=== PATIENT | female | born 1975 | race Caucasian/White ===

== ENCOUNTER 2018-10-29 09:25 | Emergency (ER) | payer OTHER ==
[~2018-10-29] VITALS: Ht 172.7 cm; Wt 108.2 kg
--- NOTE | 2018-10-29 09:46 | NUR ---
[id number]
--- NOTE | 2018-10-29 10:00 | NUR ---
PT IN ROOM. PT AMBULATED TO ROOM WITH A STEADY GAIT.
[2018-10-29] MEDS ORDERED: CLINDAMYCIN 300 MG CAPSULE ONE (10:23)
[2018-10-29] MEDS ORDERED: KETOROLAC 30 MG/1 ML ONE (10:23)
[2018-10-29] MEDS ORDERED: CLINDAMYCIN 300 MG CAPSULE PO ONE (10:30)
[2018-10-29] MEDS ORDERED: KETOROLAC 30 MG/1 ML IM ONE (10:30)
[2018-10-29 10:31] VITALS: BP 146/96
[2018-10-29] MEDS ORDERED: BACITRACIN ZINC OINT 500U/GM, 0.9 GM ONE (11:00)
--- NOTE | 2018-10-29 11:03 | NUR ---
Patient given discharge instructions and they have confirmed that they understand the instructions. Patient ambulatory with steady gait.
== END 2018-10-29 11:05 | disposition home or self-care (01) ==
LOC: ED 09:50
DX: L03.211 Cellulitis of face (principal)
CPT/HCPCS: 96372; 99283; J1885

== ENCOUNTER 2019-05-25 23:30 | Emergency (ER) | payer OTHER ==
[~2019-05-25] VITALS: Ht 172.7 cm; Wt 114.2 kg
[2019-05-25] MEDS ORDERED: TRAZ-137 PO (23:53)
[2019-05-25] MEDS ORDERED: PANT40TA3 PO (23:53)
--- NOTE | 2019-05-25 23:54 | NUR ---
PT IN HOSPITAL GOWN, RESTING IN [facility]. PT ON CARDIAC AND VITALS MONITORS. WILL CONTINUE TO MONITOR. CALL LIGHT WITHIN REACH. BILAT BEDRAILS UP.
[2019-05-26 00:34] LABS: BASOPHILS # (AUTO) 0.04 x10^3/uL (0-0.1); BASOPHILS % (AUTO) 1 % (0-1); EOSINOPHILS # (AUTO) 0.15 x10^3/uL (0-0.4); EOSINOPHILS % (AUTO) 3 % (1-7); LYMPHOCYTES # (AUTO) 2.04 x10^3/uL (1-3.4); LYMPHOCYTES % (AUTO) 38 % (22-44); MD NO; MEAN CORPUSCULAR HEMOGLOBIN 32.5 pg (27.0-34.8); MEAN CORPUSCULAR HGB CONC 33.7 g/dL (32.4-35.8); MEAN CORPUSCULAR VOLUME 96.3 fL (80-100); MEAN PLATELET VOLUME 8.6 fL (7.4-10.4); MONOCYTES # (AUTO) 0.47 x10^3/uL (0.2-0.8); MONOCYTES % (AUTO) 9 % (2-9); NEUTROPHILS # (AUTO) 2.64 x10^3/uL (1.8-6.8); NEUTROPHILS % (AUTO) 49 % (42-75); PLATELET COUNT 262 x10^3/uL (130-400); RED BLOOD COUNT 4.23 x10^6/uL (3.82-5.3); RED CELL DISTRIBUTION WIDTH 13.1 % (9.6-15.2)
[2019-05-26 00:43] LABS: ALANINE AMINOTRANSFERASE 24 U/L (12-78); ALBUMIN 3.7 g/dL (3.4-5.0); ANION GAP 7 mmol/L (5-15); CALCIUM 8.8 mg/dL (8.5-10.1); CHLORIDE 103 mmol/L (98-107); CREATININE 1.02 mg/dL (0.55-1.02)
[2019-05-26 00:47] LABS: ALKALINE PHOSPHATASE 53 U/L (45-117); BILIRUBIN,TOTAL 0.3 mg/dL (0.2-1.0); TOTAL PROTEIN 7.8 g/dL (6.4-8.2)
[2019-05-26 00:50] VITALS: BP 137/97
--- NOTE | 2019-05-26 01:12 | NUR ---
Break RN: re-evaluation done. patient discharged with instruction. verbalized understanding.
== END 2019-05-26 01:16 | disposition home or self-care (01) ==
LOC: ED 05-26 00:14
DX: I10 Essential (primary) hypertension (principal); B34.9 Viral infection, unspecified; R42 Dizziness and giddiness
CPT/HCPCS: 36415; 80053; 84703; 85025; 93005; 99284